=== PATIENT | male | born 1955 | race Caucasian/White ===

== ENCOUNTER 2018-09-13 07:54 | Day surgery (SDC) | payer BC, OTHER ==
[~2018-09-13 07:54] MED LIST: Midazolam 1 MG/ML 2 ML SDV ONE; Propofol 200 MG/20 ML SDV ONE; fentaNYL 100 MCG/2 ML SDV ONE
[2018-09-13] MEDS ORDERED: Sodium Chloride 0.9% 1,000 ML IV SCH (08:30)
[2018-09-13] MEDS ORDERED: Propofol 200 MG/20 ML SDV ONE (09:04)
--- NOTE | 2018-09-21 13:29 | OR ---
DATE OF PROCEDURE: 09/13/2018 SURGEON: Hubert Palmer MD PROCEDURES: 1. Colonoscopy to transverse colon. 2. Hemorrhoid banding. COMPLICATIONS: None. 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 ANESTHESIA: MAC. INDICATIONS: A 63-year-old male requiring a screening colonoscopy. RISKS: Risks, benefits, alternatives, and limitations including, but not limited to infection, bleeding, and perforation were explained to the patient, who wished to proceed. PROCEDURE IN DETAIL: The patient was placed in left lateral decubitus position. Digital rectal exam was noted and the hemorrhoid was identified. The scope was introduced and advanced atraumatically to transverse colon. Due to tortuosity, the procedure was terminated at this time. The scope was brought back, and the patient was noted to have some diverticulosis. On retroflex, the hemorrhoid was again reidentified and banded x1. The patient will undergo barium enema for completion due to retained stool and tortuosity of colon. Hubert Palmer MD /[id number]
== END 2018-09-13 10:57 | disposition home or self-care (01) ==
LOC: JP.SDS 07:54
PROVIDERS: ATTEND Surgery
DX: Z12.11 Encounter for screening for malignant neoplasm of colon (principal); K64.9 Unspecified hemorrhoids; K63.89 Other specified diseases of intestine; E78.00 Pure hypercholesterolemia, unspecified
CPT/HCPCS: 45378; 46945; J2250; J2704; J3010; J7030